=== PATIENT | female | born 1995 ===

== ENCOUNTER 2019-06-10 13:03 | Emergency (ER) | payer BC ==
[2019-06-10 13:18] VITALS: BP 123/66
--- NOTE | 2019-06-10 13:40 | UC ---
Elbow Pain - HPI Summary HPI Summary: Pt presents with c/o right elbow pain that is intermittent and only occurs when she hit elbow on firm surface. Pt state that just prior to , she slipped on ice while walking in high heels and fell from standing height and hit right elbow, elbow was painful and she had swelling. Pt states swelling has since resolved but continues to be painful with certain movements or actions. - History of Current Complaint Chief Complaint: UCUpperExtremity Stated Complaint: S/P FALL RIGHT ELBOW INJURY Time Seen by Provider: 06/10/19 13:10 Hx Obtained From: Patient Hx Last Menstrual Period: 05/20/19 ?: No Onset/Duration: Weeks - 2 months ago, Traumatic - fall from standing height Severity Initially: Moderate Severity Currently: Mild Pain Intensity: 0 Character: Dull, Aching Aggravating Factor(s): Movement Alleviating Factor(s): Rest Associated Signs And Symptoms: Positive: Negative - Allergies/Home Medications Allergies/Adverse Reactions: Allergies Allergy/AdvReac Type Severity Reaction Status Date / Time No Known Allergies Allergy Verified 06/10/19 13:18 PMH/Surg Hx/FS Hx/Imm Hx Previously Healthy: Yes - Surgical History Surgical History: Yes Surgery Procedure, Year, and Place: L hand - Family History Known Family History: Positive: Cardiac Disease - Social History Occupation: Student Lives: With Family Alcohol Use: Occasionally Substance Use Type: None Substance Use Comment - Amount & Last Used: occasional Smoking Status (MU): Current Every Day Smoker Amount Used/How Often: smokes a joule (nicotine) Length of Time of Smoking/Using Tobacco: 1 year Have You Smoked in the Last Year: Yes - Immunization History Vaccination Up to Date: Yes Review of Systems All Other Systems Reviewed And Are Negative: Yes Constitutional: Positive: Negative Skin: Positive: Negative Eyes: Positive: Negative ENT: Positive: Negative Respiratory: Positive: Negative Cardiovascular: Positive: Negative Gastrointestinal: Positive: Negative Genitourinary: Positive: Negative Motor: Positive: Other - right elbow pain Neurovascular: Positive: Negative Musculoskeletal: Positive: Arthralgia - occasional Neurological/Mental Status: Positive: Negative Psychological: Positive: Negative Is Patient Immunocompromised?: No Physical Exam Triage Information Reviewed: Yes Appearance: Well-Appearing Vital Signs: Initial Vital Signs Temp 99 F 06/10/19 13:10 Pulse 84 02/15/20 13:10 Resp 16 06/10/19 13:10 BP 123/66 06/10/19 13:10 Pulse Ox 100 06/10/19 13:10 Vital Signs Reviewed: Yes Eye Exam: Normal ENT Exam: Normal ENT: Positive: Hearing grossly normal Dental Exam: Normal Neck exam: Normal Respiratory: Positive: No respiratory distress Musculoskeletal Exam: Normal Musculoskeletal: Positive: Strength Intact, ROM Intact, No Edema Neurological Exam: Normal Psychological Exam: Normal Skin Exam: Normal Elbow Pain Course/Dx - Course Course Of Treatment: Pt requested a disc of xray. - Differential Dx/Diagnosis Differential Diagnosis/HQI/PQRI: Fracture (Closed), Joint Effusion Provider Diagnosis: Right elbow pain Discharge ED - Sign-Out/Discharge Documenting (check all that apply): Patient Departure All imaging exams completed and their final reports reviewed: Yes - Discharge Plan Condition: Stable Disposition: HOME Patient Education Materials: Arthralgia (ED) Referrals: Gurpreet Ferguson MD [Medical Doctor] - No Primary Care Phys,NOPCP [Primary Care Provider] - If Needed - Billing Disposition and Condition Condition: STABLE Disposition: Home
== END 2019-06-10 14:21 | disposition home or self-care (01) ==
LOC: UCCORT 13:03
DX: M25.521 Pain in right elbow (principal); F17.290 Nicotine dependence, other tobacco product, uncomplicated
CPT/HCPCS: 99211; G0463